=== PATIENT | male | born 1950 | race Caucasian/White ===

== ENCOUNTER 2022-02-22 11:15 | Day surgery (SDC) | payer MEDICARE ==
[~2022-02-22] VITALS: Ht 177.8 cm; Wt 90.7 kg
--- NOTE | ~2022-02-22 | OR ---
[facility] [address] [place], [place] [address] Draft DATE OF OPERATION: 02/22/2022 SURGEON: Cinthia Moreno MD PREOPERATIVE DIAGNOSIS: Food impaction upper to mid esophagus (ham). POSTOPERATIVE DIAGNOSES: 1. Food impaction upper to mid esophagus (ham). 2. Low-grade stricture like area at 18-20 cm. PROCEDURE: 1. Esophagogastroduodenoscopy with removal of food impaction. 2. Biopsy of esophagus between 18 to 20 cm. ANESTHESIA: General endotracheal, Cinthia Wong CRNA INDICATIONS: This 71-year-old white man is from [place], [place] who presented to the emergency room a few hours ago, having had immediate obstruction of the esophagus upon eating ham and eggs at approximately 8:00 a.m. He has had episodes of dysphagia and impaction before, but without requirement for operative intervention. He usually regurgitates food or can pass it through with water. He does describe reflux symptoms for which he takes an guov-zra-zjyqqld preparation from time to time but not in a dedicated or routine manner. He has no family history of esophageal cancer. He has been given opportunity for spontaneous passage of the food impaction after administration of glucagon, IV fluids and so on under the direction of Dr. Bales, the emergency room physician. Still he has hypersalivation and clearly the impaction has not passed. On that basis, I have recommended upper endoscopy. The risk of bleeding, infection, perforation, and so forth were all reviewed with him. A general anesthetic is anticipated so as to protect his airway upon extraction of the food foreign body. FINDINGS: Indeed there was food impacted. It was about 18 to 20 cm from the incisors and was associated with some narrowing, but no malignancy per se. He did not have typical appearance of the eosinophilic esophagitis, so it remains to be seen. Biopsies were obtained. The impaction was removed with a combination of techniques including extraction using a Vigil Net, a three prong grasper and ultimately irrigation and passage and pushing the remaining material into the stomach. By conclusion, complete clearance PATIENT NAME: KYLE BUSTILLOS OPERATIVE REPORT DATE OF : 50 REPORT #: [id number] PHYSICIAN: CINTHIA MORENO MD PCP: FAUSTO NAVAS MD REPORT IS CONFIDENTIAL AND NOT TO BE RELEASED WITHOUT AUTHORIZATION [facility] [address] [place], [place] [address] Draft of the esophagus is noted and without any complication. DESCRIPTION OF PROCEDURE: The patient was brought to the endoscopy suite and given a general endotracheal anesthetic. His initial induction had some regurgitation of saliva which was quickly managed with suctioning device and no aspiration occurred so far as could be told. With rapid sequence induction technique, the trachea was intubated securing the airway. He was allowed to remain in supine position. An Olympus video upper endoscope was passed in the hypopharynx suctioning some fluid, although there was not much left at that point. This scope was easily passed in the esophagus at approximately 20 cm from the incisors. The offending food impaction was noted. A combination of techniques was used to clear it. Initially a Vigil Net type device which did allow for extraction of some of it, but it was soft enough that it would not fully remove in one bolus. On that basis, a three prong grasper was used. This too had defect largely of spreading the material, though some was able to be explanted. Ultimately with various manipulations, it was shredded enough that it could be gently pushed distalward into the stomach itself. The stomach was evaluated thoroughly. The scope was passed through the pylorus into the duodenum, which was normal. The scope was withdrawn and retroflexed view undertaken showing no sign of neoplasm at the GE junction. The flap valve was marginal. The scope was withdrawn to the more proximal esophagus and bits of retained food were irrigated and passed forward or withdrawn with three prong grasper. The area of obstruction was at about 18 to 20 cm and had a somewhat eccentric mucosal appearance, though no per se. The area of likely accounting for obstructive symptoms was a ring-like area and biopsies were obtained of that area thoroughly. The scope was carefully withdrawn after clearance of one more time showing no sign of residual material within the esophagus or hypopharynx. He was ultimately extubated and transferred to the recovery room in good condition. CONCLUDING DIAGNOSIS: Food impaction at 18 to 20 cm. There is a low-grade stricture like area without evidence of malignancy. We will treat with PPI medication b.i.d. for two weeks then tapering to daily. We will offer followup in 4 to 6 weeks in my office and we will review his pathology reports specifically to assess for eosinophilic esophagitis. We will recommend a mechanical soft diet with no meat and no bread for the next 48 hours as well. Cinthia Moreno MD PATIENT NAME: KYLE BUSTILLOS OPERATIVE REPORT DATE OF : 50 REPORT #: [id number] PHYSICIAN: CINTHIA MORENO MD PCP: FAUSTO NAVAS MD REPORT IS CONFIDENTIAL AND NOT TO BE RELEASED WITHOUT AUTHORIZATION [facility] [address] [place], [place] [address] Draft /[facility] /[id number] cc: Gama Bales MD Copies: GAMA BALES MD ~ PATIENT NAME: KYLE BUSTILLOS OPERATIVE REPORT DATE OF : 50 REPORT #: [id number] PHYSICIAN: CINTHIA MORENO MD PCP: FAUSTO NAVAS MD REPORT IS CONFIDENTIAL AND NOT TO BE RELEASED WITHOUT AUTHORIZATION
[~2022-02-22 11:15] MED LIST: ALLOPURINOL100 MG PO; LISINOPRIL40 MG PO; LOVASTATIN20 MG PO
[2022-02-22] MEDS ORDERED: LOSARTAN-HCTZ1 EACH PO (11:39)
[2022-02-22] MEDS ORDERED: AMLODIPINE BESYL5 MG PO (11:40)
[2022-02-22] MEDS ORDERED: ALLOPURINOL300 MG PO (14:09)
[2022-02-22] MEDS ORDERED: FLUCONAZOLE150 MG PO (14:11)
--- NOTE | 2022-02-22 14:47 | HP ---
[facility] [address] [place], [place] [address] Signed ADMISSION DATE: 02/22/2022 REASON FOR ADMISSION: Food impaction of esophagus. HISTORY OF PRESENT ILLNESS: This 71-year-old white man is accompanied by his . They are from [place]. At 8:00 a.m. this morning, he was eating the beginnings of his breakfast which included ham and scrambled eggs. He had sudden occlusion of his esophagus in the upper portion. He has had this before but this go either by coughing it up or swallowing after waiting. After a couple of hours, it was not forthcoming. On that basis, he drove directly to [place] to the ER where he was evaluated by Dr. Bales. He was found to have hypersalivation, inability to tolerate secretions. An IV was begun and he was given intravenous glucagon with no significant benefit. LABORATORY DATA: Lab studies were obtained showing a normal CBC including a platelet count of 260,000. Electrolytes normal with a glucose of 127 and a COVID serology which is pending. He has not thought to have had COVID. PAST MEDICAL HISTORY: Significant for episodic reflux for which he takes "Tums" from time to time. He has not taken PPI medication on a routine basis. He has hypertension as well. CURRENT MEDICATIONS: Include allopurinol, amlodipine, losartan- hydrochlorothiazide, and lovastatin. ALLERGIES: He has no known drug allergies. SOCIAL HISTORY: He is and lives in [place]. He is long retired. REVIEW OF SYSTEMS: He denies any shortness of breath. He has had no hemoptysis or hematemesis or blood per rectum. He feels the obstruction to be somewhat lower than the cervical esophagus in the midsternum. PHYSICAL EXAMINATION: GENERAL: A pleasant white man who looks to be in no severe distress at this time. VITAL SIGNS: His temperature is 98.4, pulse 81, blood pressure 138/91, O2 saturation Electronically Signed By: CINTHIA MORENO MD 02/22/22 1447 PATIENT NAME: KYLE BUSTILLOS HISTORY AND PHYSICAL DATE OF : 50 REPORT #: [id number] PHYSICIAN: CINTHIA MORENO MD PCP: FAUSTO NAVAS MD REPORT IS CONFIDENTIAL AND NOT TO BE RELEASED WITHOUT AUTHORIZATION [facility] [address] [place], [place] [address] Signed 95% on room air. NECK: Shows no crepitus. No thyromegaly. No cervical adenopathy. CHEST: Showed normal respiratory excursion. Pulses regular. ABDOMEN: Somewhat obese but soft. EXTREMITIES: Show no clubbing, cyanosis, or edema. LAB STUDIES: Are as previously noted including a white count of 9.2, hematocrit 43.5 with platelets 260,000. ASSESSMENT: The patient has now had clinical symptoms and signs of esophageal obstruction since 8:00 a.m., it is now 1:00 p.m. and therefore at 5 hours it is quite unlikely that the food bolus will clear. He has been given glucagon and Ativan and IV fluids and at this point, I would recommend upper endoscopy be performed to remove the foreign body either by withdraw of it or advancing it depending on what is safest. The special risk of bleeding, infection, and perforation related to this maneuver was reviewed with Dr. Bales as well as the patient and his , they understand. The patient has no special need for prophylactic antibiotics. His stomach downstream from the obstruction should well have cleared by now as it has been 5 hours. Still a general anesthesia is most likely appropriate for this, so as to protect the airway. MD MERLYN Miller/MELLISAL /[id number] cc: Gama Bales MD Copies: GAMA BALES MD ~ Electronically Signed By: CINTHIA MORENO MD 02/22/22 1447 PATIENT NAME: KYLE BUSTILLOS HISTORY AND PHYSICAL DATE OF : 50 REPORT #: [id number] PHYSICIAN: CINTHIA MORENO MD PCP: FAUSTO NAVAS MD REPORT IS CONFIDENTIAL AND NOT TO BE RELEASED WITHOUT AUTHORIZATION
--- NOTE | 2022-02-22 15:10 | NUR ---
02/22/22 1510 Sheets,Debbie 1410 PT ARRIVED TO PACU WITH RESOURCE PROGRAM TEACHER DOING NONDENOMINATIONAL THRUST TO MAINTAIN AIRWAY, O2 MASK IN PLACE AT 10L. VSS. PT NONAROUSABLE TO PAINFUL STIMULI. HOB INCREASED. 1414 PT SPITTING OUT AIRWAY. AIRWAY REMOVED. 1419 NAUSEA NOTED AND EMESIS BAG GIVEN, HOB INCREASED. EMESIS NOTED. 1425 RESOURCE PROGRAM TEACHER GIVING NAUSEA MEDICATION. 1428 PT VERY DROWSY, DENIES PAIN. VOID NOTED IN BED. 1435 PT AT BEDSIDE TALKING TO PT, PLAN OF CARE DISCUSSED. PT ASLEEP OFF AND ON. 1445 VSS AND PT TRANSFERED TO MED-SURG. REPORT GIVEN AND ALL QUESTIONS ANSWERED. PT STOOD AT EDGE OF BED WITH TWO RNS, PT SAT BACK DOWN DUE TO DIZZINESS. PT REPORTS FEELING BETTER THEN TRANSFERED HIMSELF TO BED. PAPERWORK WITH RX AT BEDSIDE AND MED-WAX BALL MOLDER AWARE.
--- NOTE | 2022-02-22 15:45 | NUR ---
PATIENT UP TO BATHROOM VOIDED WELL. STBY ASSIST, PATIENT DRESSED WITH ASSISTANCE OF . REMOVED IV, CATH TIP INTACT. PATIENT DRINKING WATER WELL, REPORTS NO PAIN. VERBALIZES READY TO DISCHARGE HOME. PROVIDED PATIENT AND DISCHARGE INSTRUCTION, THEN PROVIDED WHEELCHAIR RIDE OUT TO CAR.
--- NOTE | 2022-02-24 15:43 | PATH ---
[facility] [address] [place], [place] [address] Signed SPECIMEN(S): A ESOPHAGEAL BIOPSY AT 18 CM SPECIMEN SOURCE: A. ESOPHAGEAL BIOPSY AT 18 CM CLINICAL HISTORY: Foreign body of the esophagus / esophageal obstruction with stricture at 20 cm. FINAL PATHOLOGIC DIAGNOSIS: Esophagus, 18 cm, biopsy: - Focally ulcerated cardia-oxyntic type mucosa with mixed acute and chronic inflammation. - Negative for intestinal metaplasia, dysplasia or malignancy. 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 NAL:cml:C2NR MICROSCOPIC EXAMINATION: Histologic sections of all submitted blocks are examined by light microscopy. These findings, together with the gross examination, support the pathologic diagnosis. GROSS DESCRIPTION: The specimen, labeled "GM, 1," and designated on the requisition "esophagus at 18 cm," is received in formalin and consists of three king soft tissue fragments that measure 0.3 cm in greatest dimension. The specimen is entirely submitted in cassette (A1). AT (under the direct supervision of a pathologist) The Gross Description was prepared using a voice recognition system. The report was reviewed for accuracy; however, sound-alike word errors, addition and/or deletions may occur. If there is any question about this report, please contact Client Services. PERFORMING LABORATORY: The technical component was performed by [facility], [address] [place] [address] (CLIA# [id number]). [facility], [address] [address] (CLIA# [id number]). PATIENT NAME: KYLE BUSTILLOS PATHOLOGY DATE OF : 50 REPORT #: [id number] PHYSICIAN: JENNIFFERYTE PATHOLOGY PCP: FAUSTO NAVAS MD REPORT IS CONFIDENTIAL AND NOT TO BE RELEASED WITHOUT AUTHORIZATION [facility] [address] [place] [address] Signed Diagnostician: Georgina Bustamante MD Pathologist Electronically Signed 02/24/2022 Copies: ~ PATIENT NAME: KYLE BUSTILLOS PATHOLOGY DATE OF : 50 REPORT #: [id number] PHYSICIAN: [facility]EEPA PATHOLOGY PCP: FAUSTO NAVAS MD REPORT IS CONFIDENTIAL AND NOT TO BE RELEASED WITHOUT AUTHORIZATION
== END 2022-02-22 15:40 | disposition home or self-care (01) ==
LOC: ED 11:15 → DSVR 11:20 → MS 11:20 → ED 11:20 → DS 11:20 → MS 15:40 → DS 15:40
PROVIDERS: ATTEND Surgery
PROC: 0DB58ZX Excision of Esophagus, Via Natural or Artificial Opening Endoscopic, Diagnostic (ICD-10-PCS; 2022-02-22)
PROC: 0DC58ZZ Extirpation of Matter from Esophagus, Via Natural or Artificial Opening Endoscopic (ICD-10-PCS; principal; 2022-02-22 13:27)
DX: T18.128A Food in esophagus causing other injury, initial encounter (principal); K22.2 Esophageal obstruction; K20.90 Esophagitis, unspecified without bleeding; Z20.822 Contact with and (suspected) exposure to COVID-19
CPT/HCPCS: 36415; 80048; 85025; 96361; 96374; 96375; 99284-25; J0330; J1100; J1610; J1885; J2060; J2405; J2550; J2704; J2765; J7030; J7121; U0003

== ENCOUNTER 2022-05-17 11:41 | Day surgery (SDC) | payer MEDICARE ==
[~2022-05-17] VITALS: Ht 177.8 cm; Wt 91.0 kg
[~2022-05-17 11:41] MED LIST changes: +ALLOPURINOL300 MG PO; +AMLODIPINE BESYL5 MG PO; +DAILY VALUE1 EACH PO; +FLUCONAZOLE150 MG PO; +LOSARTAN-HCTZ1 EACH PO; +OMEPRAZOLE20 M1 PO
--- NOTE | 2022-05-17 12:09 | NUR ---
THIS RN TO ROOM TO ASSIST WITH IV START. IV STARTED PER PROTOCOL, BRISK BLOOD RETURN NOTED. IV FLUIDS STARTED BY DAVIS TANG. NO ADDITIONAL NEEDS AT THIS TIME. CALL LIGHT WITHIN REACH.
--- NOTE | 2022-05-17 13:35 | NUR ---
05/17/22 1335 Kalyn Meehan 1331- PT ARRIVES TO PACU AWAKE AND TALKING WITH STAFF. PT REPORTS NO PAIN OR NAUSEA. RESP EVEN AND UNLABORED. OXYGEN SAT HIGH 90'S ON 2L VIA CO2 NC.
--- NOTE | 2022-05-20 12:01 | PATH ---
[facility] [address] [facility] [place], [place] [address] Signed THIS IS AN ADDENDUM REPORT SPECIMEN(S): A ANTRUM BIOPSY SPECIMEN(S): B GASTRIC POLYP SPECIMEN(S): C DISTAL ESOPHAGUS BIOPSY SPECIMEN(S): D BIOPSY AT 18 CM SPECIMEN SOURCE: A. ANTRUM BIOPSY B. GASTRIC POLYP C. DISTAL ESOPHAGUS BIOPSY D. BIOPSY AT 18 CM CLINICAL HISTORY: History of reflux, dysphagia, and food impaction in 01/2022. 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 Antrum biopsy: - Benign gastric-type mucosa with focal slight chronic inflammation. - Negative for evidence of Helicobacter organisms on routine HE stained sections. B. Gastric polyp: - Benign gastric fundic gland-type mucosa with features focally suggestive of fundic gland polyp formation (slight). C. Distal esophageal biopsy: - Benign esophageal mucosa, negative for significantly increased epithelial eosinophils. - Negative for glandular mucosa. D. Biopsy at 18 cm: - Benign gastric-type mucosa with reactive features, negative for specialized intestinal metaplasia or dysplasia. - Focal mild chronic inflammation. - See comment. 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 A Helicobacter pylori immunostain is pending and will be reported in an addendum. JVR:deborah:C2NR PATIENT NAME: LORENZO BUSTILLOS PATHOLOGY DATE OF : 50 REPORT #: [id number] PHYSICIAN: DEEPA MCCURDY PCP: FAUSTO NAVAS MD REPORT IS CONFIDENTIAL AND NOT TO BE RELEASED WITHOUT AUTHORIZATION [facility] [address] [place], [place] [address] Signed MICROSCOPIC EXAMINATION: Histologic sections of all submitted blocks are examined by light microscopy. These findings, together with the gross examination, support the pathologic diagnosis. GROSS DESCRIPTION: Four specimens are received in four containers, labeled "Lorenzo Bustillos." A. The specimen, labeled " Lorenzo Bustillos, antrum biopsy," is received in formalin and consists of two king soft tissue fragments that measure 0.3 and 0.4 cm in greatest dimension. The specimen is entirely submitted in cassette (A1). B. The specimen, labeled " Lorenzo Bustillos, gastric polyp," is received in formalin and consists of one king soft tissue fragment that measures 0.4 cm in greatest dimension. The specimen is entirely submitted in cassette (B1). C. The specimen, labeled " Lorenzo Bustillos, distal esophagus biopsy," is received in formalin and consists of two white-king soft tissue fragments that measure 0.3 and 0.4 cm in greatest dimension. The specimen is entirely submitted in cassette (C1). D. The specimen, labeled " Lorenzo Bustillos, biopsy at 18 cm," is received in formalin and consists of four king soft tissue fragments that measure 0.2 to 0.3 cm in greatest dimension. The specimen is entirely submitted in cassette (D1). FB (under the direct supervision of a pathologist) The Gross Description was prepared using a voice recognition system. The report was reviewed for accuracy; however, sound-alike word errors, addition and/or deletions may occur. If there is any question about this report, please contact Client Services. PERFORMING LABORATORY: The technical component was performed by [facility], [address] [place] [id number] (CLIA# [id number]). Professional interpretation was performed by [email or web address], [address] [place] [address] Ave[address] [place] [address] (CLIA#: [id number]). ADDITIONAL NOTES: Immunohistochemical and/or in situ hybridization studies were performed on this case with the appropriate positive controls that react as expected. This test was developed and its performance characteristics determined by [facility]. It has not been cleared or approved by the U.S. Food and Drug Administration. The FDA has determined that PATIENT NAME: LORENZO BUSTILLOS PATHOLOGY DATE OF : 50 REPORT #: [id number] PHYSICIAN: DEEPA MCCURDY PCP: FAUSTO NAVAS MD REPORT IS CONFIDENTIAL AND NOT TO BE RELEASED WITHOUT AUTHORIZATION [address] [address] Signed such clearance or approval is not necessary. This test is used for clinical purposes. It should not be regarded as investigational or for research. [facility] is certified under the Clinical Laboratory Improvement Amendments of 1988 (CLIA) as qualified to perform high complexity clinical laboratory testing. This assay has not been validated for specimens that have been decalcified. PERFORMING LABORATORY: The technical component was performed by [facility], [address] [place] [address] (CLIA# [id number]). Professional interpretation was performed by [facility], [address] [place] [address] Ave[address] [place] [address] (CLIA#: [id number]). REASON FOR ADDENDUM: To report the results of Helicobacter pylori immunostain. ADDENDUM COMMENT: A Helicobacter pylori immunostain is performed with appropriate controls on block (D1) and is negative for stainable organisms. The original diagnostic features remain unchanged. JVR:[facility] Diagnostician: Luis Daniel Staples MD Pathologist Electronically Signed 05/20/2022 Copies: ~ PATIENT NAME: LORENZO BUSTILLOS PATHOLOGY DATE OF : 50 REPORT #: [id number] PHYSICIAN: [facility] PCP: FAUSTO NAVAS MD REPORT IS CONFIDENTIAL AND NOT TO BE RELEASED WITHOUT AUTHORIZATION
--- NOTE | 2022-05-20 12:43 | OR ---
[facility] [address] [place], [place] [address] Signed DATE OF OPERATION: 05/17/2022 SURGEON: Cinthia Moreno MD PREOPERATIVE DIAGNOSIS: History of proximal esophageal obstruction February 22, 2022 related to focally ulcerated cardiac oxyntic mucosa of the esophagus. POSTOPERATIVE DIAGNOSIS: Abnormal mucosa evaluated, innocuous in appearance. PROCEDURE: Esophagogastroduodenoscopy with biopsy. ANESTHESIA: Intravenous sedation; fentanyl 100 mcg and Versed 5 mg. INDICATION: This 71-year-old white man is a patient of Dr. Fausto Dick and known to me from the past having presented to the emergency room with esophageal obstruction on February 22, 2022. This required upper endoscopy to free the obstructing food bolus. He was found to have an ulcerated area in the proximal esophagus at about 18 cm. 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 He has been treated with PPI medication, Prilosec 20 mg daily and continues to do well with no symptoms of dysphagia at all. Notably, he did have episodic dysphagia symptoms prior to upper endoscopy and removal of the foreign body. He is here to undergo upper endoscopy to better characterize the lesion more fully, assess for other abnormalities and certainly to assess for malignancy. He understands the risk of bleeding, infection, and perforation related to upper endoscopy and wished to proceed. FINDINGS: Area in question was well identified and quite obvious. There was no associated stricture or even inflammation. It was well biopsied. The distal esophagus, stomach Electronically Signed By: CINTHIA MORENO MD 05/20/22 1243 PATIENT NAME: KYLE BUSTILLOS OPERATIVE REPORT DATE OF : 50 REPORT #: [id number] PHYSICIAN: CINTHIA MORENO MD PCP: FAUSTO DICK MD REPORT IS CONFIDENTIAL AND NOT TO BE RELEASED WITHOUT AUTHORIZATION [facility] [address] [place], [place] [address] Signed and duodenum appeared normal overall. CLOtest was negative. Retroflexed view did confirm hiatal hernia. I suspect that the area in question in the proximal esophagus at about 18 cm has been focally ulcerated related to the ectopic gastric mucosa without treatment for it and that ongoing PPI medication will keep things at bay. DESCRIPTION OF PROCEDURE: The patient was brought to the endoscopy suite and given topical hypopharyngeal lidocaine anesthesia. He was given intravenous sedation with full cardiopulmonary monitoring to the point of slurred speech and nystagmus. A bite block was placed. An Olympus video upper endoscope was passed in the hypopharynx and easily passed in the esophagus. Soon thereafter was noted an area of abnormal mucosa consistent with the previous lesion. There was circumferential minimal scarring in the area. The scope was easily passed into the mid and distal esophagus which was normal. Scope was passed to the stomach, which was insufflated with air. Rugal folds were normal as was antral motility. The pylorus was normal. Scope was passed through into the normal-appearing duodenum. The scope was withdrawn and biopsies taken of the antrum for both DILLON and pathologic testing. Retroflexed view was undertaken showing a moderate-sized hiatal hernia. The scope was withdrawn to the distal esophagus, which showed no evidence of inflammation. Biopsies were obtained nevertheless. The scope was withdrawn to the mid esophagus, which was normal and into the proximal esophagus at about 18 cm where the mucosal lesion was dominantly one-sided, but a similar patch of mucosa directly across from it was also noted. This was biopsied to affirm the presumed diagnosis. The scope was withdrawn and removed and the patient was taken to the recovery room in good condition. CONCLUDING DIAGNOSIS: Area in question is well identified and it does have some residual scarring, but no actual dense stricture. 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 I would recommend continued use of PPI medications continuously without fail and long-term. We will see him back in the office in 4 to 6 weeks and review his pathology report and his clinical course. MD MERLYN Miller/MODL Electronically Signed By: CINTHIA MORENO MD 05/20/22 1243 PATIENT NAME: KYLE BUSTILLOS OPERATIVE REPORT DATE OF : 50 REPORT #: [id number] PHYSICIAN: CINTHIA MORENO MD PCP: FAUSTO DICK MD REPORT IS CONFIDENTIAL AND NOT TO BE RELEASED WITHOUT AUTHORIZATION [facility] [address] [place] [address] Signed /[id number] cc: Fausto Dick MD Copies: FAUSTO DICK MD ~ Electronically Signed By: CINTHIA MORENO MD 05/20/22 1243 PATIENT NAME: KYLE BUSTILLOS OPERATIVE REPORT DATE OF : 50 REPORT #: [id number] PHYSICIAN: CINTHIA MORENO MD PCP: FAUSTO DICK MD REPORT IS CONFIDENTIAL AND NOT TO BE RELEASED WITHOUT AUTHORIZATION
== END 2022-05-17 14:01 | disposition home or self-care (01) ==
LOC: OPS 11:41 → DS 11:46 → OPS 13:00
PROVIDERS: ATTEND Surgery
PROC: 0DB68ZX Excision of Stomach, Via Natural or Artificial Opening Endoscopic, Diagnostic (ICD-10-PCS; 2022-05-17)
PROC: 0DB38ZX Excision of Lower Esophagus, Via Natural or Artificial Opening Endoscopic, Diagnostic (ICD-10-PCS; principal; 2022-05-17 13:00)
DX: K29.50 Unspecified chronic gastritis without bleeding (principal); K21.00 Gastro-esophageal reflux disease with esophagitis, without bleeding; K22.2 Esophageal obstruction; I10 Essential (primary) hypertension; K44.9 Diaphragmatic hernia without obstruction or gangrene; E78.5 Hyperlipidemia, unspecified; Z87.39 Personal history of other diseases of the musculoskeletal system and connective tissue
CPT/HCPCS: 99153; G0500; J2250; J3010; J7121